=== PATIENT | male | born 1990 | race Caucasian/White ===

== ENCOUNTER 2022-09-02 18:20 | Emergency (ER) | payer MEDICAID ==
[~2022-09-02] VITALS: Ht 172.7 cm; Wt 72.9 kg
[~2022-09-02 18:20] MED LIST: VICOT PO
[2022-09-02] MEDS ORDERED: KETOROLAC TROMETHAMINE 60 MG/2 ML VIAL IM ONE (20:00)
[2022-09-02] MEDS ORDERED: IBUP-2070 PO (22:10)
[2022-09-02 22:23] VITALS: BP 131/78
== END 2022-09-02 23:18 | disposition home or self-care (01) ==
LOC: EMS 18:20
DX: S46.911A Strain of unspecified muscle, fascia and tendon at shoulder and upper arm level, right arm, initial encounter (principal); F12.90 Cannabis use, unspecified, uncomplicated; F16.99 Hallucinogen use, unspecified with unspecified hallucinogen-induced disorder; M25.511 Pain in right shoulder; X50.9XXA Other and unspecified overexertion or strenuous movements or postures, initial encounter; Y93.89 Activity, other specified; Y92.89 Other specified places as the place of occurrence of the external cause; Y99.8 Other external cause status
CPT/HCPCS: 99284; 29105; 71045; 73030; 73060; 96372; J1885